=== PATIENT | male | born 1975 | race Caucasian/White ===

== ENCOUNTER 2024-02-04 23:58 | Emergency (ER) | payer BC ==
[~2024-02-04] VITALS: Ht 180.3 cm; Wt 90.7 kg
[2024-02-05 00:51] VITALS: BP 143/92; TEMP 98.1; O2SAT 98
[2024-02-05] MEDS ORDERED: CLINDAMYCIN HCL 150 MG CAPSULE ONE (01:59)
[2024-02-05] MEDS ORDERED: CLIN150C16 PO (02:03)
[2024-02-05] MEDS: CLINDAMYCIN HCL 150 MG CAPSULE PO ONE (02:04)
== END 2024-02-05 02:13 | disposition home or self-care (01) ==
LOC: ER 02-05 00:07
DX: K04.7 Periapical abscess without sinus (principal); L03.211 Cellulitis of face